=== PATIENT | female | born 1945 | race Caucasian/White ===

== ENCOUNTER 2025-07-08 19:54 | Emergency (ER) | payer MEDICARE ==
[~2025-07-08] VITALS: Ht 165.1 cm; Wt 54.0 kg
[2025-07-08 20:02] VITALS: TEMP 36.9; O2SAT 99
[2025-07-08] MEDS ORDERED: TETANUS, DIPHTHERIA, PERTUSSIS VAC/PF 0.5ML (>10YR OLD) IM ONE (20:30)
[2025-07-08 23:00] VITALS: BP 150/75; PULSE 69; RESP 12; O2SAT 98
[2025-07-08] MEDS: TETANUS, DIPHTHERIA, PERTUSSIS VAC/PF 0.5ML (>10YR OLD) IM ONE (23:01)
== END 2025-07-08 23:15 | disposition home or self-care (01) ==
LOC: ER 19:54
DX: S50.311A Abrasion of right elbow, initial encounter (principal); E78.00 Pure hypercholesterolemia, unspecified; R51.9 Headache, unspecified; I10 Essential (primary) hypertension; W01.0XXA Fall on same level from slipping, tripping and stumbling without subsequent striking against object, initial encounter; Y93.89 Activity, other specified; Y92.89 Other specified places as the place of occurrence of the external cause; Y99.8 Other external cause status
CPT/HCPCS: 73080; 90471; 90715; 99285; A4606